=== PATIENT | female | born 1975 | race Caucasian/White ===

== ENCOUNTER 2019-02-26 11:10 | Day surgery (SDC) | payer BC ==
[2019-02-20 14:30] LABS: CLARITY,URINE SLIGHTLY CLOUDY (Clear); COLOR,URINE STRAW (Yellow); GLUCOSE, URINE NEGATIVE (Neg); KETONES,URINE NEGATIVE (Neg); LEUKOCYTE ESTERASE ,URINE NEGATIVE (Neg); NITRITES, URINE NEGATIVE (Neg); OCCULT BLOOD,URINE NEGATIVE (Neg); PROTEIN,URINE NEGATIVE (Neg); UROBILINOGEN,URINE 0.2 E.U/dL (0.2-1.0)
[2019-02-20 14:38] LABS: BACTERIA,URINE 2+ /HPF (Neg); MUCUS STRANDS NONE SEEN /LPF (Neg); RBC,URINE NONE SEEN /HPF (0-2); RENAL CELLS, URINE FEW /HPF; SQUAMOUS EPITHELIAL CELL,UR MANY /LPF (FEW); UA COLLECTION TYPE CLN CATCH MIDSTREAM; WBC,URINE 0-4 /HPF (0-4)
[2019-02-20 14:41] LABS: ALBUMIN 3.5 G/DL (3.4-5.0); ALBUMIN/GLOBULIN RATIO 0.8 (1.1-1.5); ALKALINE PHOSPHATASE 65 IU/L (46-116); BLOOD UREA NITROGEN 9 MG/DL (7-18); BUN/CREATININE RATIO 9.6 (6.6-38.0); CHLORIDE 104 MMOL/L (99-107); CREATININE 0.94 MG/DL (0.40-0.90); PRE OP ALT 27 U/L (30-65); PRE OP ANION GAP 7 (8-16); PRE OP AST 22 U/L (10-37); PRE OP BILIRUB, TOTAL 0.4 MG/DL (0.0-1.0); PRE OP GLUCOSE 83 MG/DL (70-104); PRE OP POTASSIUM 3.4 MMOL/L (3.4-5.1); PRE OP SODIUM 137 MMOL/L (135-145); TOTAL PROTEIN 7.8 G/DL (6.4-8.2); eGFR 65 ML/MIN
[2019-02-20 14:42] LABS: BASOPHILS % (AUTO) 0.5 % (0-1); EOSINOPHILS # (AUTO) 0.2 X10'3 (0-0.9); EOSINOPHILS % (AUTO) 2.7 % (0-6); LYMPHOCYTES # (AUTO) 2.3 X10'3 (1.1-4.8); LYMPHOCYTES % (AUTO) 30.8 % (21-51); MEAN CORPUSCULAR HEMOGLOBIN 30.7 PG (27.0-31.0); MEAN CORPUSCULAR HGB CONC 33.6 g/dL (33.0-36.5); MEAN CORPUSCULAR VOLUME 91.4 FL (78-98); MEAN PLATELET VOLUME 8.3 FL (7.4-10.4); MONOCYTES # (AUTO) 0.6 X10'3 (0-0.9); MONOCYTES % (AUTO) 7.8 % (2-12); NEUTROPHILS # (AUTO) 4.3 X10'3 (1.8-7.7); NEUTROPHILS % (AUTO) 58.2 % (42-75); PRE OP HEMATOCRIT 41.9 % (35.0-45.0); PRE OP HEMOGLOBIN 14.1 g/dL (12.0-16.0); PRE OP PLATELET COUNT 298 X10'3 (140-440); RED BLOOD COUNT 4.59 X10'6 (4.20-5.60); RED CELL DISTRIBUTION WIDTH 13.5 % (11.5-14.5)
[2019-02-20 15:24] LABS: HCG SERUM QL NEGATIVE
[2019-02-26] VITALS (7 sets, daily range): BP systolic 103–156; BP diastolic 68–94
[~2019-02-26] VITALS: Ht 154.9 cm; Wt 88.5 kg
[~2019-02-26 11:10] MED LIST: APPLE CIDER VINEGAR PO; ASPI-144 PO; cefotetan 2gm/isosm dext IVPB 50 ML IV ONE; famotidine 20mg tablet PO ONE; ringers solution, lacted 1,000 ML IV SCH
[2019-02-26] MEDS ORDERED: BUPIVAcaine/PF 2.5mg/ml (0.25%) 10ml vial ONE (11:19)
[2019-02-26] MEDS ORDERED: epiNEPHrine 1 mg/ml inj ONE (11:19)
[2019-02-26] MEDS ORDERED: propofol inj 20 ML IV ONE (12:04)
[2019-02-26] MEDS ORDERED: rocuronium 10mg/ml inj IV ONE (12:04)
[2019-02-26] MEDS ORDERED: fentaNYL/PF 50MCG/1 ML 2ML syringe ONE (12:04)
[2019-02-26] MEDS ORDERED: midazolam 2 mg/2 ml injection ONE (12:04)
[2019-02-26] MEDS ORDERED: LIDOcaine 2% (20mg/ml) 5ml vial ONE (12:04)
[2019-02-26] MEDS ORDERED: sevoflurane 250ml liquid IH ONE (12:18)
[2019-02-26] MEDS ORDERED: meperidine/PF 25mg/ml syringe IV PRN ×3 (12:35)
[2019-02-26] MEDS ORDERED: ringers solution, lacted 1,000 ML IV SCH (12:35)
[2019-02-26] MEDS ORDERED: proCHLORperazine 10 MG/2 ml inj IV PRN (12:35)
[2019-02-26] MEDS ORDERED: morphine 4 MG/ML inj SYRINge IV PRN ×2 (12:35)
[2019-02-26] MEDS ORDERED: ondansetron/PF 4mg/2ml inj IV PRN (12:35)
[2019-02-26] MEDS ORDERED: ondansetron/PF 4mg/2ml inj ONE (13:11)
[2019-02-26] MEDS ORDERED: glycopyrrolate 0.2mg/ml inj ONE (13:11)
[2019-02-26] MEDS ORDERED: dexamethasone sod phosphate 4mg/ml inj. ONE (13:11)
[2019-02-26] MEDS ORDERED: neostigmine methylsulfate 1 MG/ML 10ml vial ONE (13:11)
--- NOTE | 2019-02-26 13:12 | NUR ---
Received from OR via RUMA , accompanied by Anesthesiologist LUIS and report given by Anesthesiolgist. PATIENT WITH 20G PIV IN LEFT UE RUNNING LR AT 100. PATIENT WTIH VSS AT THIS TIME. 2 ABDOMINAL LATERAL SITES DERMABONDED AND ONE JEAN CARLOS PAD IN PLACE. 10L MASK WITH 100% SATURATIONS. Addendum: 02/26/19 at 1327 by Armando Alvarez RN, RN Amended: Links added.
--- NOTE | 2019-02-26 14:02 | NUR ---
ALL DC CRITERIA HAS BEEN MET. IV TAKEN OUT WITHOUT COMPLICATIONS. ALL INSTRUCTIONS COVERED AND ALL QUESTIONS ANSWERED. DRESSINGS CDI. OUT VIA WHEELCHAIR TO PERSONAL VEHICLE WHERE PATIENT WAS SECURED IN AND DRIVEN HOME BY FAMILY. PATIENT DRESSED SELF. NO C.O. PAIN, DRESSINGS STILL CDI CURRENTLY. PAVEL(FAMILY) DROVE PATIENT HOME. Addendum: 02/26/19 at 1424 by Armando Alvarez RN, RN Amended: Links added.
== END 2019-02-26 14:02 | disposition home or self-care (01) ==
LOC: PAS 11:10
PROVIDERS: ATTEND Obstetrics & Gynecology Obstetrics
DX: Z30.2 Encounter for sterilization (principal); D64.9 Anemia, unspecified; Z98.890 Other specified postprocedural states; Z79.899 Other long term (current) drug therapy; Z72.89 Other problems related to lifestyle
CPT/HCPCS: 36415; 58670; 71046; 80053; 81001; 82948; 84703; 85025; 86885; 86900; 86901; 93005; J0171; J1100; J2001; J2175; J2250; J2405; J2704; J2710; J3010; J3490; J7120; A7000